=== PATIENT | female | born 1990 | race Caucasian/White ===

== ENCOUNTER 2018-08-22 22:48 | Emergency (ER) | payer OTHER ==
[~2018-08-22] VITALS: Ht 157.5 cm; Wt 52.2 kg
[2018-08-22 22:50] VITALS: BP 119/58
--- NOTE | 2018-08-22 23:10 | PHYS DOC ---
Past Medical History Past Medical History: Asthma Past Surgical History: Appendectomy Alcohol Use: None Drug Use: None Adult General Chief Complaint Chief Complaint: ASTHMA HPI HPI Patient is a 28 year old female who presents with asthma. Patient is a at 15 weeks gestation. She presents to the ER today complaining of asthma exacerbation. She has had worsening shortness of breath over the last 2-3 days. She relates that her asthma is normally well controlled until she is and for some reason she has ongoing symptoms during pregnancies. No fever or chills. No abdominal pain or vaginal complaints. No recent cough or flulike symptoms. She endorses that she has gone through most and entire inhaler since the first of the month over the last 2 weeks. She was evaluated at an urgent care and started on Flovent as well. The patient presents to the ER primarily requesting prednisone as she knows this is the medication that has helped her in the past. Review of Systems Review of Systems Constitutional: Denies fever or chills Eyes: Denies change in visual acuity HENT: Denies nasal congestion or sore throat Respiratory: as documented above Cardiovascular: No additional information not addressed in HPI GI: Denies abdominal pain, nausea : Denies dysuria or hematuria Musculoskeletal: Denies back pain Integument: Denies rash or skin lesions Neurologic: Denies headache All other systems were reviewed and found to be within normal limits, except as documented in this note. Current Medications Current Medications Current Medications Medications (Trade) Dose Ordered Sig/Hugo Start Time Stop Time Status Last Admin Dose Admin Albuterol/ Ipratropium (Duoneb) 3 ml 1X ONCE 08/22/18 23:15 08/22/18 23:38 DC 08/22/18 23:14 3 ML Prednisone (Prednisone) 50 mg 1X ONCE 08/22/18 23:30 08/22/18 23:38 DC Allergies Allergies Allergies Coded Allergies Type Severity Reaction Last Updated Verified No Known Drug Allergies 08/22/18 No Physical Exam Physical Exam Constitutional: Well developed, well nourished, no acute distress, non-toxic appearance HENT: Normocephalic, atraumatic, bilateral external ears normal, oropharynx moist Eyes: PERRLA, EOMI, conjunctiva normal, no discharge Neck: Normal range of motion, no tenderness Cardiovascular:Heart rate regular rhythm, no murmur Lungs & Thorax: GERD wheezes bilaterally in all herrera. No increased work of breathing. Good air movement bilaterally Abdomen: Bowel sounds normal, soft, no tenderness Skin: Warm, dry, no erythema Extremities: No tenderness Neurologic: Alert and oriented X 3 Psychologic: Affect normal Current Patient Data Vital Signs Vital Signs Date Time Temp Pulse Resp B/P (MAP) Pulse Ox O2 Delivery O2 Flow Rate FiO2 08/22/18 23:14 Room Air 08/22/18 22:50 98.0 105 20 119/58 (78) 100 98.0 EKG EKG [] Radiology/Procedures Radiology/Procedures [] Course & Med Decision Making Course & Med Decision Making Pertinent Labs and Imaging studies reviewed. (See chart for details) 23:00: Patient is evaluated and examined. She has no acute distress but does have a few wheezes bilaterally. DuoNeb is ordered along with by mouth prednisone. 23:40: Patient currently feeling improved. Lung sounds with improved air movement and fewer wheezes. No acute distress. Plan is for discharge home. She is provided 5 day course of prednisone and refills of her albuterol inhaler. Patient is advised to follow-up with her primary care doctor or return to the ER for any new or worsening symptoms. Dragon Disclaimer Dragon Disclaimer This electronic medical record was generated, in whole or in part, using a voice recognition dictation system. Departure Departure Disposition: 01 HOME, SELF-CARE Condition: GOOD Scripts Albuterol Sulfate (PROAIR HFA INHALER) 8.5 Gm Hfa.aer.ad 2 PUFF INH Q4H PRN for SHORTNESS OF BREATH, #1 INHALER 2 Refills Prov: JULIUS NGUYEN DO 08/22/18 Prednisone (PREDNISONE) 50 Mg Tablet 1 TAB PO DAILY, #5 TAB 2 Refills Prov: JULIUS NGUYEN DO 08/22/18 JULIUS NGUYEN DO Aug 22, 2018 23:10
[2018-08-22] MEDS ORDERED: IPRATRPIUM/ALBUTEROL 0.5/2.5MG 3 ML NEBU. NEB ONE (23:15)
[2018-08-22] MEDS ORDERED: PRED50TA PO (23:23)
[2018-08-22] MEDS ORDERED: PROAIR HFA8.5 GM INH (23:23)
[2018-08-22] MEDS ORDERED: predniSONE 10 MG TABLET PO ONE (23:30)
== END 2018-08-22 23:55 | disposition home or self-care (01) ==
LOC: ER 22:48
DX: O99.512 Diseases of the respiratory system complicating pregnancy, second trimester (principal); J45.909 Unspecified asthma, uncomplicated; Z90.49 Acquired absence of other specified parts of digestive tract; Z3A.15 15 weeks gestation of pregnancy
CPT/HCPCS: 94640; 99283; J7512; J7620